=== PATIENT | female | born 1980 | race Caucasian/White ===

== ENCOUNTER 2018-08-12 00:14 | Outpatient (CLI) | payer OTHER ==
[~2018-08-12] VITALS: Ht 165.1 cm; Wt 77.7 kg
[2018-08-12 00:40] VITALS: BP 112/63; PULSE 68; TEMP 99
[2018-08-12] MEDS ORDERED: PRENATAL MVI PO (00:55)
[2018-08-12 00:58] VITALS: BP 112/63; PULSE 68; TEMP 99
== END 2018-08-12 02:00 | disposition home or self-care (01) ==
LOC: LDRO 00:14
DX: O62.9 Abnormality of forces of labor, unspecified (principal); Z3A.37 37 weeks gestation of pregnancy

== ENCOUNTER 2018-08-28 09:07 | Inpatient (IN) | payer OTHER ==
[~2018-08-28] VITALS: Ht 165.1 cm; Wt 81.4 kg
[2018-08-28] VITALS (33 sets, daily range): BP systolic 96–124; BP diastolic 51–65; PULSE 53–105; TEMP 97.3–98
[~2018-08-28 09:07] MED LIST: PRENATAL MVI PO
[2018-08-28 10:48] LABS: BASO % 0.4 % (0.0-2.0); EOS # 0.1 (0.0-0.7); EOS % 0.7 % (0-4.0); GRAN # 5.6 (1.4-6.5); GRAN % 68.7 % (42.2-75.2); HEMOGLOBIN 12.5 g/dl (12.5-16.0); LYMPH # 1.8 (1.2-3.4); LYMPH % 22.3 % (20.0-51.0); MEAN CELL VOLUME 90 fl (80.0-100.0); MEAN CORPUSCULAR HEMOGLOBIN 31 pg (27.0-31.0); MEAN CORPUSCULAR HGB CONC 34 g/dl (33.0-37.0); MEAN PLATELET VOLUME 9.7 fl (7.4-10.4); MONO # 0.6 (0.1-0.6); MONO % 7.2 % (1.7-9.3); PLATELET COUNT 166 K/mm3 (130-400); REDCELL DISTRIBUTION WIDTH-CV 13.5 % (11.5-14.5)
[2018-08-28 10:49] LABS: HEMATOCRIT 36.7 % (37.0-47.0)
[2018-08-29 00:01] VITALS: BP 97/59; PULSE 112; TEMP 98.7
[2018-08-29 04:30] VITALS: BP 95/52; PULSE 66; TEMP 97.7
[2018-08-29 08:30] VITALS: BP 102/55; PULSE 62; TEMP 97.9
[2018-08-29 13:00] VITALS: BP 110/47; PULSE 79; TEMP 98.3
[2018-08-29 17:22] VITALS: BP 106/50; PULSE 68; TEMP 98.7
[2018-08-29 19:52] VITALS: BP 103/49; PULSE 71; TEMP 98
[2018-08-30 09:30] VITALS: BP 100/55; PULSE 75; TEMP 97.9
== END 2018-08-30 11:40 | disposition home or self-care (01) | DRG 807 ==
LOC: LDRO 09:07 → LDR 09:38 → OB 22:25 → LDRO 08-31 10:16
PROVIDERS: Student in an Organized Health Care Education/Training Program
PROC: 10E0XZZ Delivery of Products of Conception, External Approach (ICD-10-PCS; principal; 2018-08-28)
PROC: 0KQM0ZZ Repair Perineum Muscle, Open Approach (ICD-10-PCS; 2018-08-28)
DX: O70.1 Second degree perineal laceration during delivery (principal); Z37.0 Single live birth; Z3A.39 39 weeks gestation of pregnancy; O76 Abnormality in fetal heart rate and rhythm complicating labor and delivery; Z28.21 Immunization not carried out because of patient refusal; G89.29 Other chronic pain; M51.27 Other intervertebral disc displacement, lumbosacral region
CPT/HCPCS: J2590; J2795; J7120

== ENCOUNTER → 2019-01-14 | Outpatient (CLI) | payer OTHER | LOC: COL.RAD 13:05 | DX: M50.31 Other cervical disc degeneration, high cervical region (principal); M48.02 Spinal stenosis, cervical region; M51.37 Other intervertebral disc degeneration, lumbosacral region ==

== ENCOUNTER → 2019-02-15 | Outpatient (CLI) | payer OTHER | LOC: COL.RAD 12:57 | DX: M50.31 Other cervical disc degeneration, high cervical region (principal) ==